=== PATIENT | male | born 1985 | race Two or more races ===

== ENCOUNTER 2023-02-10 17:24 | Emergency (ER) | payer OTHER ==
[~2023-02-10] VITALS: Ht 188 cm; Wt 90.9 kg
[~2023-02-10 17:24] MED LIST: AMLO-257 PO; ASPI-1450 PO; NOCURR
[2023-02-10 17:43] VITALS: BP 148/87; PULSE 94; RESP 18; TEMP 98.6
[2023-02-10] MEDS ORDERED: AMOX1TAB16 PO (18:12)
[2023-02-10] MEDS ORDERED: IBUPROFEN 600 MG TABLET PO ONE (18:15)
[2023-02-10] MEDS ORDERED: AMOX TR/POT CLAV 875 MG/125 MG TABLET PO ONE (18:15)
== END 2023-02-10 18:23 | disposition home or self-care (01) ==
LOC: EMS 17:25
DX: K04.7 Periapical abscess without sinus (principal); F17.210 Nicotine dependence, cigarettes, uncomplicated; F14.90 Cocaine use, unspecified, uncomplicated; F12.90 Cannabis use, unspecified, uncomplicated; F15.90 Other stimulant use, unspecified, uncomplicated; Z98.890 Other specified postprocedural states
CPT/HCPCS: 99283